=== PATIENT | female | born 1995 | race Hispanic/Latino ===

== ENCOUNTER 2017-07-18 17:24 | Emergency (ER) | payer SELFPAY ==
[~2017-07-18] VITALS: Ht 160 cm; Wt 75.4 kg
[2017-07-18] MEDS ORDERED: ACETAMINOPHEN 325 MG TAB PO ONE (19:00)
[2017-07-18 20:50] VITALS: BP 140/80
== END 2017-07-18 20:52 | disposition home or self-care (01) ==
LOC: FSED 17:24
DX: N93.9 Abnormal uterine and vaginal bleeding, unspecified (principal)
CPT/HCPCS: 36415; 76856; 84702; 87086; 99283